=== PATIENT | female | born 1955 | race Caucasian/White ===

== ENCOUNTER 2019-01-16 06:28 | Day surgery (SDC) | payer MEDICAID ==
[~2019-01-16] VITALS: Ht 162.6 cm; Wt 61.8 kg
[~2019-01-16 06:28] MED LIST: ACET-2247 PO; NORT25 PO; SODIUM CHLORIDE 0.9% 1,000 ML IV ONE; SUMA100T PO
[2019-01-16] MEDS ORDERED: ASPI-988 PO (07:22)
[2019-01-16] MEDS ORDERED: LIDOCAINE/PF 2% 5 ML VIAL INJ ONE (12:00)
[2019-01-16] MEDS ORDERED: PROPOFOL 1% 20 ML VIAL IVP ONE (12:00)
== END 2019-01-16 09:45 | disposition home or self-care (01) ==
LOC: SURGERY 06:28
PROVIDERS: ATTEND Student in an Organized Health Care Education/Training Program
DX: K29.50 Unspecified chronic gastritis without bleeding (principal); K25.9 Gastric ulcer, unspecified as acute or chronic, without hemorrhage or perforation; K44.9 Diaphragmatic hernia without obstruction or gangrene; K29.80 Duodenitis without bleeding; K31.89 Other diseases of stomach and duodenum; G43.909 Migraine, unspecified, not intractable, without status migrainosus; F17.210 Nicotine dependence, cigarettes, uncomplicated; Z87.11 Personal history of peptic ulcer disease; Z79.899 Other long term (current) drug therapy; Z79.82 Long term (current) use of aspirin; Z98.890 Other specified postprocedural states
CPT/HCPCS: 43239; 88305; 88312; 88313; C1769; J2704; J3490; J7030